=== PATIENT | male | born 1975 | race Two or more races ===

== ENCOUNTER 2022-10-15 13:15 | Emergency (ER) | payer BC ==
[~2022-10-15] VITALS: Ht 172.7 cm; Wt 92.0 kg
[2022-10-15 15:23] VITALS: BP 143/99
[2022-10-15] MEDS ORDERED: ACETAMINOPHEN 500 MG TAB PO ONE (15:45)
[2022-10-15] MEDS ORDERED: TETANUS-DIPTH-ACEL PERTUSSIS 0.5ML SYR Tdap IM ONE (16:00)
[2022-10-15] MEDS ORDERED: IBUP800T27 PO ×2 (16:17→17:32)
[2022-10-15] MEDS ORDERED: CEPH-510 PO ×2 (16:17→17:32)
== END 2022-10-15 16:43 | disposition home or self-care (01) ==
LOC: ER 13:15
DX: S61.411A Laceration without foreign body of right hand, initial encounter (principal); W26.8XXA Contact with other sharp object(s), not elsewhere classified, initial encounter; Y93.89 Activity, other specified; Y92.89 Other specified places as the place of occurrence of the external cause; Y99.8 Other external cause status
CPT/HCPCS: 12002; 73130; 90471; 90715